=== PATIENT | male | born 1990 | race Two or more races ===

== ENCOUNTER 2020-02-15 12:20 | Emergency (ER) | payer OTHER ==
[~2020-02-15] VITALS: Ht 175.3 cm; Wt 112.3 kg
--- NOTE | 2020-02-15 12:40 | NUR ---
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
--- NOTE | 2020-02-15 13:08 | NUR ---
PT HERE FOR C/O RIGHT TESTICLE PAIN, PT REPORTS PAIN INCREASES WHEN WALKING.
[2020-02-15 13:38] VITALS: BP 136/92
[2020-02-15] MEDS ORDERED: HYDROcodone/APAP 5/325 TABLET ONE (13:41)
[2020-02-15] MEDS ORDERED: HYDROcodone/APAP 5/325 TABLET PO ONE (14:00)
[2020-02-15] MEDS ORDERED: AZITHROMYCIN 500 MG TABLET PO ONE (14:00)
[2020-02-15] MEDS ORDERED: CEFTRIAXONE 250 MG IM ONE (14:00)
[2020-02-15] MEDS ORDERED: AZITHROMYCIN 500 MG TABLET ONE (14:07)
[2020-02-15] MEDS ORDERED: CEFTRIAXONE 250 MG ONE (14:07)
== END 2020-02-15 14:39 | disposition home or self-care (01) ==
LOC: ED 13:30
DX: N49.2 Inflammatory disorders of scrotum (principal); F17.200 Nicotine dependence, unspecified, uncomplicated
CPT/HCPCS: 76870; 87491; 87591; 96372; 99284; J0696

== ENCOUNTER 2020-02-16 16:12 | Inpatient (IN) | payer OTHER ==
[~2020-02-16] VITALS: Ht 175.3 cm; Wt 110.3 kg
[2020-02-16] MEDS ORDERED: PIPERACILLIN/TAZO/PMX 3.375GM 50 ML ONE (17:13)
[2020-02-16] MEDS ORDERED: MORPHINE SULFATE 4 MG/ML, 1ML ONE (17:13)
[2020-02-16] MEDS ORDERED: ONDANSETRON 2MG/ML, 2ML ONE (17:13)
[2020-02-16 17:29] LABS: BASOPHILS % (AUTO) 1 % (0-1); EOSINOPHILS % (AUTO) 2 % (1-7); LYMPHOCYTES % (AUTO) 15 % (22-44); MEAN CORPUSCULAR HEMOGLOBIN 29.1 pg (27.5-34.5); MEAN CORPUSCULAR HGB CONC 32.9 g/dL (33.2-36.2); MEAN PLATELET VOLUME 8.5 fL (7.4-10.4); MONOCYTES % (AUTO) 8 % (2-9); NEUTROPHILS % (AUTO) 75 % (42-75); PLATELET COUNT 258 x10^3/uL (130-400); RED BLOOD COUNT 5.21 x10^6/uL (4.38-5.82); RED CELL DISTRIBUTION WIDTH 14.2 % (9.4-14.8)
[2020-02-16] MEDS ORDERED: MORPHINE SULFATE 4 MG/ML, 1ML IVPush PRN (17:30)
[2020-02-16] MEDS ORDERED: SODIUM CHLORIDE 0.9% 1,000ML IVBOLUS ONE (17:30)
[2020-02-16] MEDS ORDERED: VANCOMYCIN PER PHARMACY MC PRN ×2 (17:30→20:00)
[2020-02-16] MEDS ORDERED: ONDANSETRON 2MG/ML, 2ML IVPush ONE (17:30)
[2020-02-16] MEDS ORDERED: PIPERACILLIN/TAZO/PMX 3.375GM 50 ML IV ONE (17:30)
[2020-02-16 17:33] LABS: MD NO
[2020-02-16 17:37] LABS: ALANINE AMINOTRANSFERASE 33 U/L (12-78); ALBUMIN 3.2 g/dL (3.4-5.0); ANION GAP 4 mmol/L (5-15); CALCIUM 8.6 mg/dL (8.5-10.1); CHLORIDE 106 mmol/L (98-107); CREATININE 1.01 mg/dL (0.7-1.3)
[2020-02-16 17:39] LABS: ALKALINE PHOSPHATASE 117 U/L (45-117); BILIRUBIN,TOTAL 0.5 mg/dL (0.2-1.0); TOTAL PROTEIN 7.3 g/dL (6.4-8.2)
[2020-02-16] MEDS ORDERED: VANCOMYCIN 2,500 MG in SODIUM CHLORIDE 0.9% 500 ML IV ONE (18:00)
[2020-02-16] MEDS ORDERED: SODIUM CHLORIDE FLUSH 10ML SYR IVF PRN (19:00)
[2020-02-16 20:00] VITALS: BP 142/92
[2020-02-16] MEDS ORDERED: PHARMACOKINETIC MONITORING MC PRN (20:00)
[2020-02-16] MEDS ORDERED: ZOLPIDEM 5MG TABLET PO PRN (20:00)
[2020-02-16] MEDS ORDERED: DOCUSATE 100 MG CAPSULE PO PRN (20:00)
[2020-02-16] MEDS ORDERED: HYDROcodone/APAP 5/325 TABLET PO PRN (20:00)
[2020-02-16] MEDS ORDERED: CYCLOBENZAPRINE 10 MG TABLET PO PRN (20:00)
[2020-02-16] MEDS ORDERED: morphine SULFATE 10 MG/ML, 1ML IVPush PRN (20:00)
[2020-02-16] MEDS ORDERED: ENALAPRILAT 1.25 MG/ML, 2ML IVPush PRN (20:00)
[2020-02-16] MEDS ORDERED: ACETAMINOPHEN 325 MG TABLET PO PRN (20:00)
[2020-02-16] MEDS ORDERED: ONDANSETRON 2MG/ML, 2ML IVPush PRN (20:00)
[2020-02-16] MEDS: FAMOTIDINE 20 MG TABLET PO SCH (20:19)
[2020-02-16] MEDS: LACTATED RINGERS 1,000 ML IV SCH (22:49)
[2020-02-17] MEDS: PIPERACILLIN/TAZO/PMX 3.375GM 50 ML IV SCH ×2 (01:16→11:30)
[2020-02-17 01:23] VITALS: BP 129/90
[2020-02-17 05:57] LABS: BASOPHILS % (AUTO) 1 % (0-1); EOSINOPHILS % (AUTO) 3 % (1-7); LYMPHOCYTES % (AUTO) 25 % (22-44); MEAN CORPUSCULAR HEMOGLOBIN 29.3 pg (27.5-34.5); MEAN PLATELET VOLUME 8.5 fL (7.4-10.4); MONOCYTES % (AUTO) 8 % (2-9); NEUTROPHILS % (AUTO) 64 % (42-75); PLATELET COUNT 253 x10^3/uL (130-400); RED CELL DISTRIBUTION WIDTH 14.4 % (9.4-14.8)
[2020-02-17 06:04] LABS: INTERNATIONAL NORMALIZED RATIO 1.08 (0.93-1.1); PROTHROMBIN TIME 11.4 Seconds (9.6-11.5)
[2020-02-17 06:09] LABS: ANION GAP 6 mmol/L (5-15); CALCIUM 8.5 mg/dL (8.5-10.1); CHLORIDE 110 mmol/L (98-107)
[2020-02-17 06:11] LABS: CREATININE 0.78 mg/dL (0.7-1.3)
[2020-02-17 06:15] LABS: MD NO
[2020-02-17 07:30] VITALS: BP 130/86
[2020-02-17] MEDS: LACTATED RINGERS 1,000 ML IV SCH ×2 (09:34→16:24)
[2020-02-17] MEDS: FAMOTIDINE 20 MG TABLET PO SCH ×2 (09:36→20:02)
[2020-02-17] MEDS: VANCOMYCIN 2,200 MG in SODIUM CHLORIDE 0.9% 500 ML IV SCH ×2 (10:10→14:44)
[2020-02-17] MEDS: AMPICILLIN/SULBACTAM 3 GM in SODIUM CHLORIDE 0.9% 100 ML IV SCH ×2 (10:10→16:26)
[2020-02-17 13:11] VITALS: BP 122/75
[2020-02-17 19:15] VITALS: BP 121/82
[2020-02-18] MEDS: AMPICILLIN/SULBACTAM 3 GM in SODIUM CHLORIDE 0.9% 100 ML IV SCH ×3 (00:49→16:52)
[2020-02-18 01:05] VITALS: BP 115/71
[2020-02-18] MEDS: VANCOMYCIN 2,200 MG in SODIUM CHLORIDE 0.9% 500 ML IV SCH ×2 (03:15→14:59)
[2020-02-18] MEDS: LACTATED RINGERS 1,000 ML IV SCH (05:24)
[2020-02-18 07:15] VITALS: BP 129/88
[2020-02-18] MEDS: FAMOTIDINE 20 MG TABLET PO SCH ×2 (09:00→20:00)
[2020-02-18 12:25] VITALS: BP 118/80
[2020-02-18 19:30] VITALS: BP 121/78
[2020-02-19] MEDS: AMPICILLIN/SULBACTAM 3 GM in SODIUM CHLORIDE 0.9% 100 ML IV SCH ×3 (00:46→16:21)
[2020-02-19 00:58] VITALS: BP 115/74
[2020-02-19 03:42] LABS: BASOPHILS % (AUTO) 1 % (0-1); EOSINOPHILS % (AUTO) 2 % (1-7); LYMPHOCYTES % (AUTO) 27 % (22-44); MEAN CORPUSCULAR HEMOGLOBIN 29.2 pg (27.5-34.5); MEAN CORPUSCULAR HGB CONC 33.1 g/dL (33.2-36.2); MEAN PLATELET VOLUME 8.3 fL (7.4-10.4); MONOCYTES % (AUTO) 7 % (2-9); NEUTROPHILS % (AUTO) 63 % (42-75); PLATELET COUNT 273 x10^3/uL (130-400); RED BLOOD COUNT 4.88 x10^6/uL (4.38-5.82); RED CELL DISTRIBUTION WIDTH 13.7 % (9.4-14.8)
[2020-02-19 03:43] LABS: HCT (SEDRATE) 43.1 % (39.2-51.8); MD NO
[2020-02-19 03:46] LABS: ANION GAP 4 mmol/L (5-15); CALCIUM 8.5 mg/dL (8.5-10.1); CHLORIDE 109 mmol/L (98-107); CREATININE 0.75 mg/dL (0.7-1.3)
[2020-02-19 04:22] LABS: CREATININE 0.77 mg/dL (0.7-1.3)
[2020-02-19 04:23] LABS: VANCOMYCIN,TROUGH 9.7 mcg/mL (5.0-10.0)
[2020-02-19] MEDS: VANCOMYCIN 2,200 MG in SODIUM CHLORIDE 0.9% 500 ML IV SCH (04:28)
[2020-02-19 07:56] VITALS: BP 133/92
[2020-02-19] MEDS: FAMOTIDINE 20 MG TABLET PO SCH ×2 (08:23→20:49)
[2020-02-19] MEDS: VANCOMYCIN 2,000 MG in SODIUM CHLORIDE 0.9% 500 ML IV SCH ×2 (12:06→19:48)
[2020-02-19 13:16] VITALS: BP 131/79
[2020-02-19 19:48] VITALS: BP 128/83
[2020-02-20] MEDS: AMPICILLIN/SULBACTAM 3 GM in SODIUM CHLORIDE 0.9% 100 ML IV SCH ×3 (01:00→17:17)
[2020-02-20 01:51] VITALS: BP 111/76
[2020-02-20] MEDS: VANCOMYCIN 2,000 MG in SODIUM CHLORIDE 0.9% 500 ML IV SCH (03:42)
[2020-02-20 07:56] VITALS: BP 133/86
[2020-02-20] MEDS: FAMOTIDINE 20 MG TABLET PO SCH ×2 (09:22→21:00)
[2020-02-20 11:18] LABS: BASOPHILS % (AUTO) 1 % (0-1); EOSINOPHILS % (AUTO) 2 % (1-7); LYMPHOCYTES % (AUTO) 23 % (22-44); MD NO; MEAN CORPUSCULAR HEMOGLOBIN 29.3 pg (27.5-34.5); MEAN CORPUSCULAR HGB CONC 33.4 g/dL (33.2-36.2); MONOCYTES % (AUTO) 8 % (2-9); NEUTROPHILS % (AUTO) 66 % (42-75); PLATELET COUNT 290 x10^3/uL (130-400); RED BLOOD COUNT 5.02 x10^6/uL (4.38-5.82); RED CELL DISTRIBUTION WIDTH 13.8 % (9.4-14.8)
[2020-02-20 14:07] VITALS: BP 126/80
[2020-02-20 19:47] VITALS: BP 121/79
[2020-02-21 00:25] VITALS: BP 103/67
[2020-02-21] MEDS: AMPICILLIN/SULBACTAM 3 GM in SODIUM CHLORIDE 0.9% 100 ML IV SCH ×2 (01:09→09:18)
[2020-02-21 07:56] VITALS: BP 124/72
[2020-02-21] MEDS: FAMOTIDINE 20 MG TABLET PO SCH (09:18)
[2020-02-21 13:39] VITALS: BP 112/76
[2020-02-21] MEDS ORDERED: AMOX1TAB64 PO (15:52)
== END 2020-02-21 17:22 | disposition home or self-care (01) | DRG 728 ==
LOC: ED 17:46 → EDIP 18:35 → 3N 19:38
PROVIDERS: ADMIT Internal Medicine; ATTEND Internal Medicine
DX: N49.2 Inflammatory disorders of scrotum (principal); E66.9 Obesity, unspecified; E88.09 Other disorders of plasma-protein metabolism, not elsewhere classified; F15.90 Other stimulant use, unspecified, uncomplicated; F17.210 Nicotine dependence, cigarettes, uncomplicated; I86.1 Scrotal varices; Z68.37 Body mass index [BMI] 37.0-37.9, adult
CPT/HCPCS: 36415; 76870; 80048; 80053; 80202; 82565; 83605; 84145; 85025; 85610; 85651; 86140; 87040; 87070; 87077; 87186; 87205; 93975; 96374; 96375; G0378; J0295; J2405; J2543; J3370; J2270; J7030; J7040; J7120